=== PATIENT | female | born 1965 | race Caucasian/White ===

== ENCOUNTER → 2017-04-22 | Day surgery (SDC) | payer OTHER ==
[~2017-04-22] VITALS: Ht 157.5 cm; Wt 77.5 kg
[~2017-04-22] MED LIST: FENTAnyl 50 MCG/ML VIAL ONE; LIDOCAINE 2% (SDV) 5 ML INJ ONE; LIDOCAINE 4% SOLUTION 50 ML BTL ONE; MIDAZOLAM 1 MG/ML 2 ML INJ ONE; MULT-761 PO
[2017-04-22 08:41] VITALS: Ht 157.5 cm; Wt 77.5 kg
--- NOTE | 2017-04-22 09:21 | OPPN ---
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
[2017-04-22 10:01] VITALS: BP 110/62; RESP 14
--- NOTE | 2017-04-22 14:44 | GILP ---
DATE OF PROCEDURE: 04/22/2017 PROCEDURE: Esophagogastroduodenoscopy. PREOPERATIVE DIAGNOSIS: Patient presenting with history of abdominal discomfort, chronic heartburn, rule out peptic ulcer disease, rule out gastroesophageal reflux disease. POSTOPERATIVE DIAGNOSES: 1. Diffuse mild to moderate degree of gastritis. Rule out eosinophilic esophagitis. Biopsies done. 2. Multiple gastric polyps. Biopsies were done. 3. Mild patchy gastritis. DESCRIPTION OF PROCEDURE: After informed written consent was obtained, the patient was also in the left lateral side. Intravenous anesthesia was given by wa, which included 2 mg Versed and 50 mcg of fentanyl. When the patient became somnolent, Olympus video upper endoscope was introduced into the oropharynx and then into the esophagus. The esophagus showed evidence of erythema and friability. This could very well be eosinophilic esophagitis. Multiple biopsies were obtained. The scope at this time was advanced into the stomach. Stomach showed multiple polyps. Multiple biopsies of the polyps were done. Erythema noted scattered along the mucosal surface. Biopsy was done from the antrum and the fundus. Mucosa of the duodenum was examined, which appeared normal up to the end of the 3rd portion. Endoscope at this time was withdrawn. No additional abnormalities detected and the procedure was terminated. PLAN: Recommend proton pump inhibitor therapy. Wait for the pathology report. Dictated By: Mejia Poole MD /paulino/charlie /Document#: [id number]
== END | disposition home or self-care (01) ==
LOC: GIL 08:08
PROVIDERS: ATTEND Internal Medicine Gastroenterology
DX: K21.9 Gastro-esophageal reflux disease without esophagitis (principal); K31.7 Polyp of stomach and duodenum
CPT/HCPCS: 43239; 88305; 88312; J2250; J3010; Z7610